=== PATIENT | male | born 1985 | race Caucasian/White ===

== ENCOUNTER 2020-01-26 11:39 | Emergency (ER) | payer OTHER, SELFPAY ==
--- NOTE | 2020-01-26 11:41 | ED_ITS ---
HPI - Male Genitourinary General Chief complaint: Urogenital-Male Stated complaint: Blood in Urine Source: patient and RN notes reviewed Mode of arrival: ambulatory Limitations: no limitations Related Data Home Medications Medication Instructions Recorded Confirmed No Home Medications 01/26/20 01/26/20 Allergies Allergy/AdvReac Type Severity Reaction Status Date / Time Contrast Media Allergy Mild hives Uncoded 08/19/15 20:02 Review of Systems Review of Systems: Narrative: CONSTITUTIONAL: Denies malaise, chills, sweats, or fever. EYES: Denies visual changes, redness, or discharge. ENT: Denies rhinorrhea, congestion, sinus pain, otalgia or sore throat. CARDIOVASCULAR: Denies chest pain, palpitations, or edema. RESPIRATORY: Denies cough or dyspnea. GASTROINTESTINAL: Denies abdominal pain, nausea, vomiting, diarrhea, bloody, or mucous stools. GENITOURINARY: Denies dysuria or hematuria. SKIN: Denies rash or itching. MUSCULOSKELETAL: Denies back pain, joint pain, or myalgia. NEUROLOGIC: Denies numbness, weakness, or headache. PSYCHIATRIC: Denies anxiety or depression. All systems reviewed & are unremarkable except as noted in HPI and below PMFSH Comments At time of signature, agree with nursing past medical, surgical, social and family history. There is no relevant family history pertinent to the presenting complaint Exam Narrative: Exam Narrative: GENERAL: Well-appearing, well-nourished, and in no acute distress. HEAD: Normocephalic. EYES: PERRLA, conjunctivae clear. NECK: Supple. No lymphadenopathy CHEST: Clear to auscultation. No respiratory distress. HEART: Regular rate and rhythm. No murmur heard. Normal peripheral pulses. ABDOMEN: Soft, nontender upon palpation, nondistended, normal active bowel sounds, no palpable or pulsatile masses, no guarding. No CVA tenderness SKIN: Warm, dry, no rash. NEURO: Alert and oriented x3. PSYCH: Normal mood and affect Course Course Emergency Course: Patient is aware of diagnosis, understands and agrees to treat ment plan. Anticipatory guidance given. Patient agrees to follow-up as directed and is aware of reasons to seek care at the emergency department. Portions of this record may have been created with voice recognition software Vital Signs Vital signs: Reviewed. MDM - Male Genitourinary MDM Narrative Medical decision making narrative: Exam findings and UA show no acute concerns or changes; patient is non-toxic appearing and is in no distress. Patient is appropriate for outpatient treatment and follow-up. Critical Care Time Critical Care Time Critical Care Time: No Discharge Plan Discharge Prescriptions: No Action No Home Medications RF: 0
[2020-01-26 11:49] VITALS: BP 143/75; PULSE 63; RESP 16; TEMP 36.5; O2SAT 98
== END 2020-01-26 12:00 | disposition left against medical advice (07) ==
LOC: EXPCOLL 11:43
PROVIDERS: Emergency Provider Nurse Practitioner; PCP Physician Assistant
DX: Z53.21 Procedure and treatment not carried out due to patient leaving prior to being seen by health care provider (principal)
CPT/HCPCS: 99199

== ENCOUNTER 2024-08-04 00:04 | Day surgery (SDC) | payer OTHER, SELFPAY ==
[2024-07-27 10:19] VITALS: BMI 29.9
--- OUTSIDE RECORDS SUMMARY | 2024-08-04 00:06 | XMS_ITS | Data Portability ---
Author Organization [facility] [place] Address [address] [facility] [place] [address] Care Team Providers Care Anglesmith Name Role Phone CHATOKENDALTISHAIE Primary Care Provider Unavailab le Assessment Encounter Date Assessment Date Assessment LastModified by Organization Details LastModified Time 03/23/2024 03/23/2024 had labs via [facility]. testosterone was 318. Not available 03/23/2024 10:57:58 Plan of Treatment Reminders Order Date Submit Date Provider Last Modified By Organization Details Last Modified Time Details Appointments None recorded. Lab TSH + free T4, serum 2023 024 [employer] [facility], [address], [place], [address], 17:30:44 lipid panel, serum 2023 024 [employer] [facility], [address], [place], [address], 17:31:01 CBC w/ auto diff 2023 024 [employer] [facility], [address], [place], [address], 5 17:31:24 CMP, serum or plasma 2023 024 [employer] [facility], [address], [place], [address], 17:31:13 urinalysis , dipstick, reflex micro 2023 [facility], [address], [address], [place], [address], 5 17:31:34 testostero ne, total, serum 2023 [facility], [address], [address], [place], [address], 17:31:47 PSA, serum or plasma 2023 [facility] [employer] [facility], [address], [address], [place], [address], 5 13:42:16 HbA1c (hemoglobi n A1c), blood 2023 [facility], [address], [address], [place], [address], 5 13:42:03 Referral None recorded. Procedures upper endoscopy procedure (EGD) (PROC) 2023 [facility], [address], [address], [place], [address], 17:28:56 Surgeries None recorded. Imaging None recorded. Medication Orders None recorded. Patient TargetsNo targets recorded. Patient Instructions Encounter Date Encounter Id Patient Instructions Last Modified By Organization Details Last Modified Time 03/23/2024 [id number] A healthy lifestyle: care instructions Not available 03/23/2024 10:59:06 Reason for Referral None Reported. Results Created Date Observation Date Name Description Value Unit Range Abnormal Flag Note LastModifiedBy Organization Detail LastModifiedTime Result Notes None recorded. Problems Name Problem SNOMED Code Status Onset Date Resolution Date Notes Provider Name and Address Organization Details Recorded Time Body mass index 30+ - obesity 526589711 Active JI Whitfield, [facility] 4 10:26:15 Acid reflux 205657279 Active 024 ALEKSEY Paz Attn: Accounting ,[address] [place], [address] , [facility] 4 10:49:34 Obesity 668517297 Active 024 ALEKSEY Paz Attn: Accounting ,[address] [place], [address] , [facility] 4 10:49:37 Problem Notes None recorded. Procedures Surgical History Date Name Laterality Status Provider Name and Address Organization Details Recorded Time Appendectomy completed Romi Hinds MA [facility] 03/23/2024 10:25:10 Imaging Results None recorded. Procedure Notes None recorded. Medical Equipment None Reported. Medications Name Sig Start Date Stop Date Status Note LastModified by Organization Details LastModified Time omeprazole 20 mg capsule,delaye d release Take 1 capsule every day by oral route. active OTC Not Available Not Available No t Available rosuvastatin 5 mg tablet TAKE 1 TABLET BY MOUTH EVERY DAY active Not Available Not Available No t Available Vitals Date Recorded Body weight Respiratory rate Body mass index (BMI) Body height Oxygen saturation Oxygen saturation in Arterial blood by Pulse oximetry Heart rate Systolic blood pressure Diastolic blood pressure Provider Name and Address Organization Details Last Updated DateTime 4 434472. 43 g 18 /min 31.5 kg/m2 182.88 cm 98 % 98 % 78 /min 138 mm[Hg] 82 mm[Hg] Romi Hinds MA [facility] 4 10:23:00 Date Recorded Systolic blood pressure Diastolic blood pressure Provider Name and Address Organization Details Last Updated DateTime 03/23/2024 130 mm[Hg] 80 mm[Hg] ALEKSEY Paz Attn: Accounting, [place], [address], [facility] 03/23/2024 13:45:04 Social History Question Answer Notes LastModified by Organizat ion Details LastModified Time Tobacco Smoking Status Never Smoker JI Whitfield, [facility] 03/23/2024 10:25:54 Do You Have An Advance Directive? No Information not available 03/23/2024 What Is Your Level Of Alcohol Consumption? Occasional Information not available 03/23/2024 Are You Blind Or Do You Have Difficulty Seeing? No Glasses/c ontacts Information not available 03/23/2024 What Is Your Level Of Caffeine Consumption? Occasional Information not available 03/23/2024 In The 14 Days Before Symptom Onset, Have You Had Close Contact With A Laboratory-confir med COVID-19 While That Case Was Ill? No Information not available 03/23/2024 In The 14 Days Before Symptom Onset, Have You Had Close Contact With A Person Who Is Under Investigation For COVID-19 While That Person Was Ill? No Information not available 03/23/2024 Have You Been To An Area Known To Be High Risk For COVID-19? No Information not available 03/23/2024 Are You Currently Employed? Yes Information not available 03/23/2024 Are You Deaf Or Do You Have Serious Difficulty Hearing? No Information not available 03/23/2024 What Type Of Diet Are You Following? 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 No Information not available 03/23/2024 What Was The Date Of Your Most Recent Tobacco Screening? 03/23/2024 Information not available 03/23/2024 Do You Use Your Seat Belt Or Car Seat Routinely? Yes Information not available 03/23/2024 Do You Have Smoke And Carbon Monoxide Detectors In Your Home? Yes Information not available 03/23/2024 Do You Use Any Illicit Or Recreational Drugs? No Information not available 03/23/2024 Do You Use Sunscreen Routinely? No Information not available 03/23/2024 Has Tobacco Cessation Counseling Been Provided? No Information not available 03/23/2024 Sex: Male Functional Status Question Answer Note LastModified by Organization D etails LastModified Time Are you able to care for yourself? Yes Information not available 03/23/2024 What is your exercise level? Moderate Information not available 03/23/2024 Mental Status None recorded. Family History Relationship Description Onset Age of this Age Resolved Age Notes LastModified by Organization Details LastModified Time Father Alcohol abuse [email or web address] Not available 2023 10:25:26 Father Hypertensive disorder tcarterma Not available 2023 10:25:39 Father Hypercholest erolemia tcarterma Not available 2023 10:25:43 Mother Asthma tcarterma Not available 03/23/2024 10:25:32 Mother Hypertensive disorder tcarterma Not available 2023 10:25:39 Medical History Condition Response Coronary Artery Disease N Other N High Blood Pressure N Atrial Fibrillation N Kidney or Bladder Problems N Thyroid Problems N GI Problems N Depression N COPD N Blood Clots N Have you had a mammogram in the last yea r? N Skin Problems N Anemia N Heart Attack (OR) N Anxiety Disorder N Diabetes N Muscle, Joint, or Bone Problems N Seizures/Epilepsy N Have you had a colonoscopy in the last 1 0 years? N Acid Reflux (GERD) N Cancer N Stroke N Asthma Y Allergies N Have you had a PSA blood test in the las t year? N High Cholesterol N Hepatitis N Liver Disease N Headaches N Osteoporosis N Heart Failure N Immunizations Vaccine Type Date Status Note Provider Nam e and Address Organization Details Recorded Time MMR 2 completed Romi Hinds [place], [place] [facility] 03/23/2024 10:23:04 MMR 2 completed Romi Hinds [place] [facility] 03/23/2024 10:23:04 Tdap 6 completed Romi Hind[place] [facility] 03/23/2024 10:23:04 DTP 8 completed Romi Hind[place] [facility] 03/23/2024 10:23:04 DTP 7 completed Romi Hind[place] [facility] 03/23/2024 10:23:04 DTP 2 completed JI [place] [facility] 03/23/2024 10:23:04 DTP 7 completed Romi Hind[place] [facility] 03/23/2024 10:23:04 OPV 8 completed Romi Hinds MA null, [facility] 03/23/2024 10:23:04 OPV 7 completed Romi Hind[place] [facility] 03/23/2024 10:23:04 OPV 2 [place] [facility] 03/23/2024 10:23:04 OPV 7 completed JI Whitfield, [place] - [facility] 03/23/2024 10:23:04 Td (adult), 2 Lf tetanus toxoid, preservative free, adsorbed 2 completed [place] [facility] 03/23/2024 10:23:04 Hep B, adolescent or pediatric 7 completed [place] [facility] 03/23/2024 10:23:04 Hep B, adolescent or pediatric 6 [place] [facility] 03/23/2024 10:23:04 Hep B, adolescent or pediatric 6 [place] [facility] 03/23/2024 10:23:04 Past Encounters Encounter ID Performer Location Encounter Start Date Encounter Closed Date Diagnosis/Indication Diagnosis SNOMED-CT Code Diagnosis ICD10 Code Diagnosis Note [id number] ALEK[facility]Y [facility] [place] [address] [place] [address] 03/23/2024 09:57:37 03/23/2024 11:42:43 Body mass index 30+ - obesity 632821303 Z68.31 bmi 31.5 Obesity 712323795 E66.9 discussed healthy diet, exercise, controllin g carbohydra ailyn and added sugars in the diet Adult heal th examination 189269353 Z00.00 Annual wellness exam completed with routine lab work ordered Cholesterol screening 27 6087461 Z13.220 Fasting cholestero l ordered Diabetes m ellitus screening 168979522 Z13.1 Annual A1c screening ordered Thyroid di sorder screening 796817479 Z13.29 Routine thyroid function testing ordered Fatigue 32384128 R53.83 Testostero ne total requested to evaluate fatigue, [facility] had a reading on the low end of normal. Acid reflux 859958891 K2 1.9 Refer for upper endoscopy procedure with persistent acid reflux despite omeprazole therapy. He continues to have quite a bit of breakthrou gh symptoms and has not had a baseline EGD. Screening for malignant neoplasm of prostate 842061858 Z12.5 PSA is due for baseline evaluation in the face of potential testostero ne supplement . Health Concerns Section Related Observation LastModified by Organization Detai ls LastModified Time None Recorded Concern Status LastModified by Organization Details LastModified Time None Recorded Advance Directives Directive N: Payers Encounter Date Sequence Insurance Name Policy Number Policy Rowley Covered Member ID Rowley Member ID Guarantor Name 03/23/2024 1 [facility] - [facility] - DOS PRIOR TO 2024 (O) [id number] Armond Ambriz [id number] [facility] Armond Ambriz Notes Date Note Type Note Provider Name and Address Organization Details Recorded Time 03/23/2024 text/html Reflux/GERDRepor tigre bypatient.Symptomshea rtburn Severity:improving;mi ld Duration:present 1-4 years Onset/Timing:occasion al; still present Context:non-smoker; no drug/alcohol abuse; no drug alcohol withdrawal;related to spicy foods Alleviating Factors:protein pump inhibitors; OTC medication Aggravating Factors:lying down;worsened by food Associated Symptoms:no frequent coughing; no hoarseness; no food getting stuck; no belching/burping; no nausea; no vomiting; no regurgitation; no shortness of breath; no chest pain; no difficulty swallowing; no pain when swallowing; no bad taste; no black/tarry stools; no throat pain;heartburn Patient did have some blood work done at [facility] and they said that his testosterone was down to the low 300s which had dropped a couple 100 points from a few years ago. He is contemplating if he would like to start testosterone supplementation and was inquiring if our office would manage. ALEKSEY Paz Attn: Accounting[address] [place], [address], [facility] 04/13/2024 16:51:56
--- OUTSIDE RECORDS SUMMARY | 2024-08-04 00:06 | XMS_ITS | Clinical Summary ---
Author Organization [facility] Address [address] [place] [address] Care Team Providers Care Strategic Manager Name Role Phone Christina Overton Primary Care Provider [phone] Christina Overton Unavailable [phone] Allergies Active Allergy Reactions Criticality Noted Date Comments Iodine Hives 02/12/2020 Medications Acetaminophen (TYLENOL) 325 MG Cap Take 1 tablet by mouth every 4 (four) hours as needed (pain). Active fish oil 1000 MG Cap capsule Take 1,000 mg by mouth daily. Active Multiple Vitamins-Mineral s (MULTIVITAMIN ADULT OR) Take 1 tablet by mouth daily. Active Active Problems Problem Noted Date Diagnosed Date Gross hematuria 02/16/2020 Social History Tobacco Use Types Packs/Day Years Used Date Smoking Tobacco: Never Smokeless Tobacco: Never Alcohol Use Standard Drinks/Week Comments Yes 0 (1 standard drink = 0.6 oz pur e alcohol) socially Sex and Gender Information Value Date Recorded Sex Assigned at Not on file Legal Sex Male 12:40 PM CDT Gender Identity Not on file Sexual Orientation Not on file Last Filed Vital Signs Vital Sign Reading Time Taken Comments Blood Pressure 131/76 03/24/2021 9:53 AM [employer] Pulse 86 03/24/2021 9:53 AM [employer] [facility] Temperature 36.6 C (97.8 F) 03/24/2021 9:53 AM [employer] [facility] Respiratory Rate 19 03/24/2021 11:00 AM [employer] [facility] Oxygen Saturation 99% 03/24/2021 11:00 AM [employer] Inhaled Oxygen Concentration - - Weight 90.7 kg (200 lb) 03/24/2021 9:53 AM [employer] Height 182.9 cm (6') 03/24/2021 9:53 AM [employer] Body Mass Index 27.12 03/24/2021 9:53 AM [employer] Plan of Treatment Health Maintenance Due Date Last Done Comments Annual Physical 1989 Hepatitis C 2004 DTaP, Tdap and Td Vaccines (1 - Tdap) 2005 11/15/1991, 06/04/1987, 03/26/1987, Additional history exists Hepatitis B Vaccines (1 of 3 - 19+ 3-dose series) 2005 COVID-19 Vaccine ( - season) 2023 HPV Vaccines Aged Out No longer eligi ble based on patient's age to complete this topic Meningococcal B Vaccine Aged Out No l onger eligible based on patient's age to complete this topic Meningococcal Vaccine Aged Out No wendy blanca eligible based on patient's age to complete this topic Pneumococcal Vaccine: Pediatrics (0 to 5 Years) and At-Risk Patients (6 to 49 Years) Aged Out No longer eligible based on patient's age to complete this topic RSV Immunizations Under 20 Months Aged Out No longer eligible based on patient's age to complete this topic Insurance [employer] Care Teams Strategic Manager Relationship Specialty Start Date End Date Christina Overton PA [address] [place] [address] PCP - General PHYSICIAN LIQUOR MAKER 02/12/20 Christina Overton PA [address] [place] [address] PHYSICIAN LIQUOR MAKER 02/12/20
--- OUTSIDE RECORDS SUMMARY | 2024-08-04 00:06 | XMS_ITS | Data Portability ---
Author Organization [place] [facility] [employer], Main Office Address [address] [place] [id number] Care Team Providers Care Carpet Technician Name Role Phone JAMES BAL Tyre Fitter Assessment No assessment recorded. Plan of Treatment Reminders Order Date Submit Date Provider Last Modified By Organization Details Last Modified Time Details Appointments None recorded . Lab TSH + free T4, serum 023 04/07/20 23 [email or web address] [facility], [address], [address], [place], [address], 4 11:06:12 urinalys is, dipstick , reflex micro 023 04/07/20 23 [email or web address] [facility], [address], [address], [place], [address], 4 11:06:12 lipid panel, serum 023 04/07/20 23 [email or web address] [facility], 2022 [address], [address], [place], [address], 4 11:06:12 HbA1c (hemoglo bin A1c), blood 023 04/07/20 23 [email or web address] [facility], 2022 [address], [address], [place], [address], 4 11:06:12 CBC w/ auto diff 023 04/07/20 23 [email or web address] [facility], [address]22 [address], [address], [place], [address], 4 11:06:11 CMP, serum or plasma 023 04/07/20 [email or web address] [facility], 2022 [address], [address] [address], [place], [address], 4 11:06:12 Referral None recorded . Procedures None recorded . Surgeries None recorded . Imaging None recorded . Medication Orders None recorded . Patient TargetsNo targets recorded. Patient InstructionsNo instructions recorded. Reason for Referral None Reported. Problems Name Problem SNOMED Code Status Onset Date Resolution Date Notes Provider Name and Address Organization Details Recorded Time Dysuria 06150076 Active 022 Not Available [facility] 3 17:28:27 Cough 08217929 Active Not Available [facility] 3 17:28:27 Posterior rhinorrhea 57517043 Active Not Available [facility] 3 17:28:27 Problem Notes None recorded. Procedures Surgical History Date Name Laterality Status Provider Name and Address Organization Details Recorded Time 04/19/19 20 transurethral cystoscopy completed Tika Taylor RN [facility] [employer] [facility] 04/07/2023 14:59:00 Appendectomy completed Tika Taylor RN [facility] [employer] [facility] 04/07/2023 14:58:35 Imaging Results None recorded. Procedure Notes None recorded. Medical Equipment None Reported. Allergies Allergen ID Allergen Name Allergen Category Reaction Reaction Severity Criticality Documentation Date Start Date Code Code System Note Provider Name and Address Organization Details Recorded Time 27180 Iodinated contrast media (substanc e) medicatio n hives Not available Not available 06/17/2022 10219 2004 SNOMED Not Available [facility] 3 17:29:01 Medications Name Sig Start Date Stop Date Status Note LastModified by Organization Details LastModified Time valacyclovi r 1 gram tablet TAKE 1 TABLET BY MOUTH THREE TIMES A DAY FOR 7 DAYS 04/07 completed Not Available Not Available Not Available acetaminoph en 300 mg-codeine 30 mg tablet 02/10 completed Not Available Not Available Not Available naproxen sodium 550 mg tablet 06/15 completed Not Available Not Available Not Available levofloxaci n 500 mg tablet TAKE 1 TABLET BY MOUTH EVERY DAY 04/03 completed Not Available Not Available Not Available methylpredn isolone 4 mg tablets in a dose pack TAKE 6 TABLETS ON DAY 1 DIRECTED ON PACKAGE AND DECREASE BY 1 TAB EACH DAY FOR A TOTAL OF 6 DAYS 04/07 completed Not Available Not Available Not Available hydrocodone 10 mg-chlorphe niramine 8 mg/5 mL oral susp extend.rel 12hr Take 5 mL every day by oral route in the morning. 06/15 completed Not Available Not Available Not Available Boostrix Tdap 2.5 Lf unit-8 mcg-5 Lf/0.5 mL intramuscul ar suspension active Not Available Not Available N ot Available Aleve 250mg as needed for headache. 2014 active Not Available Not Available Not Avai lable Fish Oil otc, takes daily 2019 active Not Available Not Available Not Avai lable multivitami n otc, takes daily 2019 active Not Available Not Available Not Avai lable Excedrin 500mg as needed for headaches 2014 active Not Available Not Available Not Avai lable Vitals Date Recorded Body height Body temperature Body mass index (BMI) Body weight Respiratory rate Heart rate Oxygen saturation Oxygen saturation in Arterial blood by Pulse oximetry Systolic blood pressure Diastolic blood pressure Provider Name and Address Organization Details Last Updated DateTime 3 180.98 cm 97.6 [degF] 32 kg/m2 207699. 84 g 16 /min 84 /min 98 % 98 % 124 mm[Hg] 76 mm[Hg] Tika Taylor RN [facility] [employer] 14:54:53 Social History Question Answer Notes LastModified by Organizat ion Details LastModified Time Tobacco Smoking Status Never Smoker Tika Taylor RN [facility], [place] [employer] 04/07/2023 14:57:00 Do You Have An Advance Directive? No [email or web address] Information not available 04/07/2023 What Is Your Level Of Alcohol Consumption? Occasional [email or web address] Information not available 04/07/2023 What Is Your Level Of Caffeine Consumption? Moderate [email or web address] Information not available 04/07/2023 What Type Of Diet Are You Following? REGULAR [email or web address] Information not available 04/07/2023 What Is The Highest Grade Or Level Of School You Have Completed Or The Highest Degree You Have Received? RV32900-5 [email or web address] Information not available 04/07/2023 What Is Your Occupation? [employer], [id number] Information not available 06/17/2022 Have There Been Any Changes To Your Family Or Social Situation? Yes 2022 Information not available 04/07/2023 Do You Use Insect Repellent Routinely? No [email or web address] Information not available 04/07/2023 Where Do You Live? SingleLevelHouse [email or web address] Information not available 04/07/2023 How Many Children Do You Have? 1 Information not available 04/07/2023 Do You Have Any Pets? No Information not available 04/07/2023 What Is Your Relationship Status? [email or web address] Information not available 04/07/2023 Do You Use Your Seat Belt Or Car Seat Routinely? Yes [email or web address] Information not available 04/07/2023 Do You Have Smoke And Carbon Monoxide Detectors In Your Home? Yes Information not available 04/07/2023 Are You Passively Exposed To Smoke? No [email or web address] Information not available 04/07/2023 Are There Any Smokers In Your House? No [email or web address] Information not available 04/07/2023 Do You Use Any Illicit Or Recreational Drugs? No [email or web address] Information not available 04/07/2023 Do You Use Sunscreen Routinely? Yes Information not available 04/07/2023 Sex: Unknown Functional Status Question Answer Note LastModified by Organization D etails LastModified Time What is your exercise level? Moderate [email or web address] Information not available 04/07/2023 Mental Status None recorded. Family History Relationship Description Onset Age of this Age Resolved Age Notes LastModified by Organization Details LastModified Time Father Hypertensive disorder [email or web address] Not available 2022 14:56:14 Mother Hypertensive disorder [email or web address] Not available 2022 14:56:14 Medical History Condition Response SHINGLES Y Immunizations Vaccine Type Date Status Note Provider Nehemiah flores and Address Organization Details Recorded Time Tdap 12/14/2015 completed Not Available [employer] 06/17/2022 17:29:00 Past Encounters Encounter ID Performer Location Encounter Start Date Encounter Closed Date Diagnosis/Indication Diagnosis SNOMED-CT Code Diagnosis ICD10 Code Diagnosis Note [id number] ALEKSEY Paz [facility] [address] [place] [address] 04/07/2023 14:48:09 04/07/2023 15:24:35 Adult health examination 765921933 Z00.00 well exam completed and fasting labs ordered for annua evaluation . Cholesterol screening 27 8669873 Z13.220 Diabetes m ellitus screening 372669575 Z13.1 Thyroid di sorder screening 025174759 Z13.29 History of calculus of kidney 917515603 Z87.442 Health Concerns Section Related Observation LastModified by Organization Detai ls LastModified Time None Recorded Concern Status LastModified by Organization Details LastModified Time None Recorded Advance Directives Directive N: Payers Encounter Date Sequence Insurance Name Policy Number Policy Rowley Covered Member ID Rowley Member ID Guarantor Name 04/07/2023 1 [facility] [employer] - [facility] PRIOR TO 2024 (O) [id number] Armond Ambriz [id number] [facility] Armond Ambriz Notes Date Note Type Note Provider Name and Address Organization Details Recorded Time 04/07/2023 text/html Generic HPI TemplateReported bypatient.Notes:pt here for well exam . has not been seen since 2019. no c/o. ALEKSEY Paz [address] [facility] [address], [place], [address], [place] [facility] [employer] 04/15/2023 22:10:34
[2024-08-04 09:48] VITALS: BP 125/76; PULSE 63; RESP 18; TEMP 36.1; O2SAT 98; BMI 30.6
--- NOTE | 2024-08-04 09:49 | WPDANESEPPF ---
Anes - Initial Pre Proc Eval Procedure: Operation Date: 08/04/24 11:00 Proposed Procedures p Esophagogastroduodenoscopy - Clayton Kc MD Date/Time: 08/04/24 09:49 Surgeon: Clayton Kc MD Pre Op Diagnosis: GERD Patient Data Age: 39 Gender: M Height: 1.83 m Weight: 100 kg Allergies Allergy/AdvReac Type Severity Reaction Status Date / Time Contrast Media Allergy Mild hives Uncoded 08/04/24 09:46 Home Medications ?Medication ?Instructions ?Recorded ?Confirmed ?Type omeprazole 20 mg capsule,delayed 20 mg PO DAILY 07/27/24 08/04/24 History release rosuvastatin 5 mg tablet 5 mg PO DAILY 07/27/24 08/04/24 History Patient hx anesthesia problems: none Family hx anesthesia problems: none Results Review: All pre-operative results and documents have been reviewed as part of the pre-operative evaluation. [facility] Social History Social History Alcohol intake: current Drinks per week: 2 Living arrangements: with friend(s) Spiritual care concerns: No Anes - Eval Final PreProcedure Day of Procedure 08/04/24 09:49 Patient weight: overweight Heart: regular rate and rhythm Lungs: clear to auscultation Airway: Mallampati scale class II Neurological: alert and oriented Last oral intake: >/= 8 hours ASA classification: II Emergent: no Anesthetic plan: proceed Anesthesia type and monitoring: general GIVS and standard monitoring Results Review: All pre-operative results and documents have been reviewed as part of the pre-operative evaluation. Informed Consent: The patient's anesthetic plan and its attendant risks and benefits were discussed with the patient/family/POA. Questions were solicited and answers provided to the satisfaction of the patient/family/POA.
[2024-08-04] MEDS: LACTATED RINGERS 1,000 ML 150 ML IV CONT (09:50)
[2024-08-04 10:00] VITALS: BP 114/66; PULSE 68; RESP 20; O2SAT 97
--- NOTE | 2024-08-04 10:00 | PM.HPGS ---
History of Present Illness History of Present Illness Consent: Risks, benefits, and alternatives have been discussed and questions answered. Patient agrees to proceed with procedure. Chief complaint: GERD Narrative: Armond Ambriz III is a 39 year old male with gerd taking either famotidine or omeprazole as needed for almost 10 years, never had egd Review of Systems Review of Systems: All systems reviewed & are unremarkable except as noted in HPI and below PMFSH Past Medical History Medical History (Updated 08/04/24 @ 10:01 by Clayton Kc MD) GERD (gastroesophageal reflux disease) Social History Social History Alcohol intake: current Drinks per week: 2 Living arrangements: with friend(s) Spiritual care concerns: No Meds Home Medications and Allergies Home Medications ?Medication ?Instructions ?Recorded ?Confirmed ?Type omeprazole 20 mg capsule,delayed 20 mg PO DAILY 07/27/24 08/04/24 History release rosuvastatin 5 mg tablet 5 mg PO DAILY 07/27/24 08/04/24 History Allergies Allergy/AdvReac Type Severity Reaction Status Date / Time Contrast Media Allergy Mild hives Uncoded 08/04/24 09:46 Vital Signs Vital Signs - 24 hr 08/04/24 09:48 Temperature 96.9 F L Pulse Rate 63 Respiratory Rate 18 Blood Pressure 125/76 Pulse Oximetry 98 Oxygen Delivery Room Air Exam Const: General: comfortable and no acute distress HENMT: Face/Nose/Sinus: Normal nares present Eyes: General: appearance normal, both eyes and all related structures Neck: Neck: no JVD Resp: Auscultation: clear to auscultation bilaterally Cardio: Rate: regular rate Rhythm: regular rhythm GI: Inspection: non-distended GI Palp: Yes Soft to palpation Skin: General skin exam: normal color Neuro: General: gait normal Speech: normal speech Extrem: General: normal to inspection Psych: Mental Status: mental status grossly normal Assessment and Plan Assessment and plan (1) GERD (gastroesophageal reflux disease): Code(s): K21.9 - Gastro-esophageal reflux disease without esophagitis Status: Acute Assessment and Plan: egd with bx
[2024-08-04 10:10] VITALS: BP 115/65; PULSE 67; RESP 20; O2SAT 97
[2024-08-04 10:20] VITALS: BP 106/56; PULSE 64; RESP 24; O2SAT 97
== END 2024-08-04 10:30 | disposition home or self-care (01) ==
PROVIDERS: PCP Physician Assistant; Referring Provider Physician Assistant; Visit Provider Internal Medicine Gastroenterology
PROC: 0DJ08ZZ Inspection of Upper Intestinal Tract, Via Natural or Artificial Opening Endoscopic (ICD-10-PCS; CPT 43239; principal; 2024-08-04 11:00)
DX: K21.00 Gastro-esophageal reflux disease with esophagitis, without bleeding (principal)
CPT/HCPCS: 43239; 88305; J2704; J7120